=== PATIENT | male | born 1960 | race Caucasian/White ===

== ENCOUNTER → 2017-09-17 | Outpatient (CLI) | payer OTHER ==
--- NOTE | 2017-09-17 12:30 | P.STRESS ---
- Stress Test Note Stress Test Results/Findings: Exam Performed: stress test Exam Date: 09/17/17 Reason for Exam: Chest Pain Height: 6 ft 1 in Weight: 83.461 kg Protocol: Deejay Stage: 3 Duration of Exercise: 9:00 Resting Heart Rate: 75 Resting Blood Pressure: 152/95 Maximum Achieved Heart Rate: 152 Maximum Achieved Blood Pressure: 192/92 85% PMHR: 137 100% PMHR: 161 METS: 10.5 Technologist Comment: Stress Test Results/Findings: This is a 57-year-old gentleman with history of hypertension and hypercholesterolemia being evaluated with symptoms of chest pain. Baseline EKG showed sinus rhythm with normal IN interval and QRS duration is that it PVCs. Blood pressure at rest is 152/95 with pulse rate of 75. Patient walked on the Deejay protocol for about 9 minutes achieving a maximum heart rate of 152 with a blood pressure of 184/85. EKGs taken during and after exercise did not reveal any significant changes from the baseline. The patient did not express any chest pain. Final impression: #1. Negative stress test #2. Patient did not spell is any chest pain #3. Good exercise capacity #4. No arrhythmias noted.
--- NOTE | 2017-09-18 11:38 | EST ---
- Stress Test Note Stress Test Results/Findings: Exam Performed: stress test Exam Date: 09/17/17 Reason for Exam: Chest Pain Height: 6 ft 1 in Weight: 83.461 kg Protocol: Deejay Stage: 3 Duration of Exercise: 9:00 Resting Heart Rate: 75 Resting Blood Pressure: 152/95 Maximum Achieved Heart Rate: 152 Maximum Achieved Blood Pressure: 192/92 85% PMHR: 137 100% PMHR: 161 METS: 10.5 Technologist Comment: Stress Test Results/Findings: This is a 57-year-old gentleman with history of hypertension and hypercholesterolemia being evaluated with symptoms of chest pain. Baseline EKG showed sinus rhythm with normal HI interval and QRS duration is that it PVCs. Blood pressure at rest is 152/95 with pulse rate of 75. Patient walked on the Deejay protocol for about 9 minutes achieving a maximum heart rate of 152 with a blood pressure of 184/85. EKGs taken during and after exercise did not reveal any significant changes from the baseline. The patient did not express any chest pain. Final impression: #1. Negative stress test #2. Patient did not spell is any chest pain #3. Good exercise capacity #4. No arrhythmias noted. MTDD
== END | disposition home or self-care (01) ==
LOC: RADNMMAIN 10:23
PROVIDERS: ATTEND Family Medicine
DX: R07.9 Chest pain, unspecified (principal); I10 Essential (primary) hypertension
CPT/HCPCS: 93017

== ENCOUNTER 2018-06-18 09:52 | Day surgery (SDC) | payer OTHER ==
[2018-06-14 15:24] VITALS: BMI 25.4
[~2018-06-18 09:52] MED LIST: LACTATED RINGERS 1,000 ML IV SCH; LIDOCAINE 1% 20 ML VIAL (10MG/ML) FOR IV START INTRADERMA PRN; MIDAZOLAM (PF) 2 MG/2 ML VIAL IV PRN
[2018-06-18 10:42] VITALS: RESP 16; TEMP 97.8
[2018-06-18] MEDS ORDERED: LIDOCAINE 1% 20 ML VIAL (10MG/ML) FOR IV START INTRADERMA ONE (10:52)
[2018-06-18] MEDS ORDERED: PROPOFOL 10 MG/ML 20 ML VIAL IV ONE (11:00)
--- NOTE | 2018-06-18 11:33 | P.PCN ---
Date of Procedure: 06/18/18 Procedure(s) Performed: Procedure: Total colonoscopy and polypectomy. Preoperative diagnosis: Screening for neoplasia. Postoperative diagnosis: Diverticulosis with no evidence of acute diverticulitis or strictures. Small sigmoid polyp snared but no large polyps or cancer. Preparation: HalfLytely prep. Sedation: Was provided by anesthesia. Brief clinical history: The patient is a 57-year-old male who is scheduled for this evaluation for screening for neoplasia age being his risk factor. There is no family history of colon cancer. The patient has no abdominal complaints, bleeding or anemia. He had a prior exam around 12 years ago around the time when he had hemorrhoid issues. Procedure: With the patient on his left lateral decubitus position and after informed consent and adequate sedation, the perianal area was inspected and it did not show any fissures or fistulas. There were no masses felt on digital rectal examination. The Olympus CFH 190L videocolonoscope was then inserted in the rectum in the usual fashion and advanced to the cecum. The mucosa appeared healthy. There were several diverticular orifices seen scattered in the sigmoid and occasional small orifice was seen in the right colon and around the hepatic flexure with no evidence of acute diverticulitis or strictures. There was a small polyp in the distal sigmoid around 40 cm from the anal verge which was snared and retrieved by suction but there were no large polyps or tumors. I retroflexed the endoscope in the rectum before the endoscope was withdrawn. The patient tolerated the procedure well. Plan: The patient was reassured. Discussed dietary measures. He will follow up with you as planned and I recommended repeat exam in 5 years.
[2018-06-18 11:52] VITALS: BP 136/79; PULSE 57
== END 2018-06-18 12:22 | disposition home or self-care (01) ==
LOC: ORWHC2ENDO 09:52
DX: Z12.11 Encounter for screening for malignant neoplasm of colon (principal); D12.5 Benign neoplasm of sigmoid colon; K57.30 Diverticulosis of large intestine without perforation or abscess without bleeding; I10 Essential (primary) hypertension; E78.5 Hyperlipidemia, unspecified; Z79.899 Other long term (current) drug therapy; Z88.6 Allergy status to analgesic agent; Z90.79 Acquired absence of other genital organ(s); Z85.46 Personal history of malignant neoplasm of prostate
CPT/HCPCS: 88305; 45385; J2704

== ENCOUNTER 2018-09-07 13:59 | Emergency (ER) | payer OTHER ==
[2018-09-07] MEDS ORDERED: SODIUM CHLORIDE 0.9% 1,000 ML IV STA (14:25)
[2018-09-07 14:37] LABS: Basophils # (A) 0.1 k/uL (0-0.2); Basophils % (A) 1 %; Eosinophils # (A) 0.2 k/uL (0-0.7); Eosinophils % (A) 2 %; HCT 43.4 % (39.0-53.0); HGB 14.6 gm/dL (13.0-17.5); Lymphocytes % (A) 10 %; MCH 31.1 pg (25.0-35.0); MCHC 33.7 g/dL (31.0-37.0); MCV 92.1 fL (80.0-100.0); Mean Platelet Volume 6.9; Monocytes # (A) 0.6 k/uL (0-1.0); Monocytes % (A) 6 %; Neutrophils # (A) 8.2 k/uL (1.3-7.7); Neutrophils % (A) 80 %; Platelet Count 222 k/uL (150-450); RBC 4.71 m/uL (4.30-5.90); RDW 12.9 % (11.5-15.5); WBC 10.2 k/uL (3.8-10.6)
--- NOTE | 2018-09-07 14:44 | ED ---
General Adult HPI - General Chief complaint: Fall Stated complaint: fall Time Seen by Provider: 09/07/18 14:12 Source: patient, family, EMS, RN notes reviewed Mode of arrival: EMS Limitations: no limitations - History of Present Illness Initial comments: Patient is a pleasant 57-year-old male presenting to the emergency department following a fall. Incident occurred just prior to arrival. Patient was walking outside on the face near his [place]. Patient did fall and hit his head. Patient denies any loss of consciousness. Patient states he feels fine at this time and has no significant complaints. Patient denies any confusion or weakness or visual changes. Patient denies any headache. No neck or back pain. No chest pain or dyspnea. No abdominal pain. does state that patient has been somewhat slow to respond. She states this is not normal for him. She states otherwise he seems to be answering questions mostly appropriately. - Related Data Home Medications Medication Instructions Recorded Confirmed Atorvastatin [Lipitor] 80 mg PO DAILY 06/14/18 09/07/18 Chlorthalidone [Hygroton] 25 mg PO QAM 06/14/18 09/07/18 Lisinopril 40 mg PO QAM 06/14/18 09/07/18 Metoprolol Tartrate [Lopressor] 50 mg PO QAM 06/14/18 09/07/18 Allergies Allergy/AdvReac Type Severity Reaction Status Date / Time aspirin AdvReac Cough Verified 09/07/18 14:26 Review of Systems ROS Statement: Those systems with pertinent positive or pertinent negative responses have been documented in the HPI. ROS Other: All systems not noted in ROS Statement are negative. Constitutional: Denies: fever Eyes: Denies: eye pain ENT: Denies: ear pain Respiratory: Denies: cough Cardiovascular: Denies: chest pain Endocrine: Denies: fatigue Gastrointestinal: Denies: abdominal pain Genitourinary: Denies: dysuria Musculoskeletal: Denies: back pain Skin: Denies: rash Neurological: Reports: as per HPI. Denies: headache Past Medical History Past Medical History: Cancer, Hyperlipidemia, Hypertension Additional Past Medical History / Comment(s): HX PROSTATE CA History of Any Multi-Drug Resistant Organisms: None Reported Past Surgical History: Prostate Surgery Additional Past Surgical History / Comment(s): hemorroid surgery Past Anesthesia/Blood Transfusion Reactions: No Reported Reaction Past Psychological History: No Psychological Hx Reported Smoking Status: Light tobacco smoker Past Alcohol Use History: Daily Past Drug Use History: None Reported - Past Family History Mother Family Medical History: Cancer Additional Family Medical History / Comment(s): BREAST, LEUKEMIA Brother(s) Family Medical History: Cancer Additional Family Medical History / Comment(s): PANCREATIC General Exam Limitations: no limitations General appearance: alert, in no apparent distress Head exam: Present: atraumatic Eye exam: Present: normal appearance, PERRL, EOMI, nystagmus (Even at rest) ENT exam: Present: normal oropharynx Neck exam: Present: normal inspection. Absent: tenderness Respiratory exam: Present: normal lung sounds bilaterally Cardiovascular Exam: Present: regular rate, normal rhythm GI/Abdominal exam: Present: soft. Absent: tenderness Extremities exam: Present: normal inspection. Absent: pedal edema, calf tenderness Neurological exam: Present: alert, CN II-XII intact, motor sensory deficit, other (Patient is somewhat slow to respond, especially with answering the year. Patient does need to try several times before appropriately stating the right year) Expanded Neurological exam: Present: protecting the airway Patient oriented to: Present: person, place, time (Patient is able to state the correct year however is very delayed with this and originally states 1920.) Speech: Present: fluid speech Cranial nerves: EOM's Intact: Normal (With nystagmus) Cerebellar function: Finger to Nose: Normal Sensory exam: Upper Extremity Light Touch: Normal, Lower Extremity Light Touch: Normal Motor strength exam: RUE: 5, LUE: 5, RLE: 5, LLE: 5 Eye Response: (4) open spontaneously Motor Response: (6) obeys commands Verbal Response: (5) oriented Psychiatric exam: Present: normal affect, normal mood Skin exam: Present: normal color Course Vital Signs 09/07/18 09/07/18 09/07/18 14:06 14:31 14:56 Temperature 97.5 F L Pulse Rate 62 61 62 Respiratory 16 18 16 Rate Blood Pressure 132/85 136/91 O2 Sat by Pulse 94 L 93 L 96 Oximetry EKG Findings - EKG Comments: EKG Findings:: Sinus rhythm at 62. For screening AV block with a HI of 224. QRS 88. QT 446. QTc 452. Left axis. Inferior Q waves. No acute ST change. Medical Decision Making - Medical Decision Making Patient reevaluated and unchanged. Patient still with nystagmus. Patient and family are updated on results and plan. Case was discussed with Dr. Guillen at [facility], who will accept for Dr. Templeton - Lab Data Result diagrams: 09/07/18 14:25 09/07/18 14:25 Lab Results 09/07/18 09/07/18 09/07/18 Range/Units 14:25 14:25 14:25 WBC 10.2 (3.8-10.6) k/uL RBC 4.71 (4.30-5.90) m/uL Hgb 14.6 (13.0-17.5) gm/dL Hct 43.4 (39.0-53.0) % MCV 92.1 (80.0-100.0) fL MCH 31.1 (25.0-35.0) pg MCHC 33.7 (31.0-37.0) g/dL RDW 12.9 (11.5-15.5) % Plt Count 222 (150-450) k/uL Neutrophils % 80 % Lymphocytes % 10 % Monocytes % 6 % Eosinophils % 2 % Basophils % 1 % Neutrophils # 8.2 H (1.3-7.7) k/uL Lymphocytes # 1.0 (1.0-4.8) k/uL Monocytes # 0.6 (0-1.0) k/uL Eosinophils # 0.2 (0-0.7) k/uL Basophils # 0.1 (0-0.2) k/uL PT 10.3 (9.0-12.0) sec INR 1.0 (<1.2) APTT 21.4 L (22.0-30.0) sec Sodium 140 (137-145) mmol/L Potassium 4.0 (3.5-5.1) mmol/L Chloride 104 (98-107) mmol/L Carbon Dioxide 28 (22-30) mmol/L Anion Gap 8 mmol/L BUN 24 H (9-20) mg/dL Creatinine 0.86 (0.66-1.25) mg/dL Est GFR (CKD-EPI)AfAm >90 (>60 ml/min/1.73 sqM) Est GFR (CKD-EPI)NonAf >90 (>60 ml/min/1.73 sqM) Glucose 118 H (74-99) mg/dL Calcium 9.1 (8.4-10.2) mg/dL Total Bilirubin 0.6 (0.2-1.3) mg/dL AST 27 (17-59) U/L ALT 40 (21-72) U/L Alkaline Phosphatase 77 (38-126) U/L Troponin I (0.000-0.034) ng/mL Total Protein 6.5 (6.3-8.2) g/dL Albumin 4.0 (3.5-5.0) g/dL 09/07/18 Range/Units 14:25 WBC (3.8-10.6) k/uL RBC (4.30-5.90) m/uL Hgb (13.0-17.5) gm/dL Hct (39.0-53.0) % MCV (80.0-100.0) fL MCH (25.0-35.0) pg MCHC (31.0-37.0) g/dL RDW (11.5-15.5) % Plt Count (150-450) k/uL Neutrophils % % Lymphocytes % % Monocytes % % Eosinophils % % Basophils % % Neutrophils # (1.3-7.7) k/uL Lymphocytes # (1.0-4.8) k/uL Monocytes # (0-1.0) k/uL Eosinophils # (0-0.7) k/uL Basophils # (0-0.2) k/uL PT (9.0-12.0) sec INR (<1.2) APTT (22.0-30.0) sec Sodium (137-145) mmol/L Potassium (3.5-5.1) mmol/L Chloride (98-107) mmol/L Carbon Dioxide (22-30) mmol/L Anion Gap mmol/L BUN (9-20) mg/dL Creatinine (0.66-1.25) mg/dL Est GFR (CKD-EPI)AfAm (>60 ml/min/1.73 sqM) Est GFR (CKD-EPI)NonAf (>60 ml/min/1.73 sqM) Glucose (74-99) mg/dL Calcium (8.4-10.2) mg/dL Total Bilirubin (0.2-1.3) mg/dL AST (17-59) U/L ALT (21-72) U/L Alkaline Phosphatase (38-126) U/L Troponin I <0.012 (0.000-0.034) ng/mL Total Protein (6.3-8.2) g/dL Albumin (3.5-5.0) g/dL - Radiology Data Radiology results: report reviewed (Chest x-ray shows no acute process), image reviewed (Computed tomography scan of the brain and cervical spine does not reveal acute abnormality) Disposition Clinical Impression: Fall, Closed head injury Disposition: OTHER INSTITUTION NOT DEFINED Is patient prescribed a controlled substance at d/c from ED?: No Referrals: Dwight Mathew DO [Primary Care Provider] - 1-2 days Time of Disposition: 15:42 - Out of Hospital Transfer - Req. Specs Out of Hospital Transfer - Requested Specifics: Other Emergency Center
[2018-09-07 14:53] LABS: ALT 40 U/L (21-72); AST 27 U/L (17-59); Alkaline Phosphatase 77 U/L (38-126); Anion Gap 8 mmol/L; Blood Urea Nitrogen 24 mg/dL (9-20); Calcium 9.1 mg/dL (8.4-10.2); Carbon Dioxide 28 mmol/L (22-30); Chloride 104 mmol/L (98-107); Glucose 118 mg/dL (74-99); Sodium 140 mmol/L (137-145); Total Bilirubin 0.6 mg/dL (0.2-1.3); Total Protein 6.5 g/dL (6.3-8.2)
[2018-09-07 14:59] VITALS: RESP 16
--- NOTE | 2018-09-07 15:03 | XR ---
EXAMINATION TYPE: XR chest 2V DATE OF EXAM: 09/07/2018 COMPARISON: NONE HISTORY: Altered mental status TECHNIQUE: Frontal and lateral views of the chest are obtained. FINDINGS: There is no heart failure nor confluent pneumonic infiltrate. Heart is slightly enlarged. There are chest leads. Costophrenic angles are clear. IMPRESSION: Mild cardiomegaly. No active cardiopulmonary disease.
--- NOTE | 2018-09-07 15:06 | CT ---
EXAMINATION TYPE: CT brain sabasine wo con DATE OF EXAM: 09/07/2018 COMPARISON: 01/05/2014 HISTORY: ams, slipped on ice, fell hitting head, lacerations above right eye Neck pain CT DLP: 1733.5 mGycm Automated exposure control for dose reduction was used. TECHNIQUE: CT scan of the head and cervical spine are performed without contrast. FINDINGS: Ventricles have normal size. There is no mass effect nor midline shift. There is no sign of intracranial hemorrhage. The calvarium is intact. Cervical vertebra have fairly normal spacing and alignment. There is mild hypertrophic facet arthropa thy. The skull base is intact. There is no evidence of a fracture. There is mild spurring anteriorly in the lower cervical spine. IMPRESSION: Negative CT scan of the brain. Minor degenerative disc changes in the cervical spine. No fracture. no significant change compared to old exam.
[2018-09-07 15:08] LABS: Partial Thromboplastin Time 21.4 sec (22.0-30.0); Prothrombin Time 10.3 sec (9.0-12.0)
[2018-09-07 15:58] VITALS: BP 143/89; PULSE 58; TEMP 97.8
== END 2018-09-07 16:05 | disposition short-term general hospital (02) ==
LOC: EC 13:59
DX: S09.90XA Unspecified injury of head, initial encounter (principal); H55.00 Unspecified nystagmus; E78.5 Hyperlipidemia, unspecified; I10 Essential (primary) hypertension; F17.200 Nicotine dependence, unspecified, uncomplicated; Z88.6 Allergy status to analgesic agent; Z79.899 Other long term (current) drug therapy; Z85.46 Personal history of malignant neoplasm of prostate; Z98.890 Other specified postprocedural states; W00.0XXA Fall on same level due to ice and snow, initial encounter; Y93.01 Activity, walking, marching and hiking; Y92.89 Other specified places as the place of occurrence of the external cause
CPT/HCPCS: 36415; 70450; 71046; 72125; 80053; 84484; 85025; 85610; 85730; 93005; 96360; 99285

== ENCOUNTER → 2021-12-21 | Outpatient (CLI) | payer BC ==
--- NOTE | 2021-12-21 13:06 | XR ---
Cervical spine HISTORY: Arm pain, back pain in neck pain 5 views of the cervical spine There is multilevel spondylosis. Prevertebral soft tissues are normal. Loss of disc height is present at C6-7. C7-T1 not well seen. Cervical vertebral bodies show preserved height, alignment, bone title insurance examiner alization. There is no significant foraminal encroachment on oblique views. There are some facet arth ropathy changes. Probable vascular calcifications noted along the distribution of the carotid arterie s. Patient appears rotated, there may be spinal curvature. IMPRESSION: Degenerative disc disease and facet arthropathy, additional findings above
== END | disposition home or self-care (01) ==
LOC: RADXRYALE 08:41
PROVIDERS: ATTEND Physician Assistant
DX: M47.812 Spondylosis without myelopathy or radiculopathy, cervical region (principal); M50.30 Other cervical disc degeneration, unspecified cervical region
CPT/HCPCS: 72050

== ENCOUNTER → 2022-01-12 | Outpatient (CLI) | payer BC ==
--- NOTE | 2022-01-12 12:20 | US ---
EXAMINATION TYPE: US carotid duplex BILAT DATE OF EXAM: 01/12/2022 COMPARISON: NONE CLINICAL HISTORY: M54.2 Cervicalgia. stenosis EXAM MEASUREMENTS: RIGHT: Peak Systolic Velocity (PSV) cm/sec ----- Right CCA: 82.3 ----- Right ICA: 85.2 ----- Right ECA: 96.8 ICA/CCA ratio: 1.0 RIGHT: End Diastole cm/sec ----- Right CCA: 18.3 ----- Right ICA: 28.5 ----- Right ECA: 16.9 LEFT: Peak Systolic Velocity (PSV) cm/sec ----- Left CCA: 108.4 ----- Left ICA: 89.5 ----- Left ECA: 77.9 ICA/CCA ratio: 0.8 LEFT: End Diastole cm/sec ----- Left CCA: 22.7 ----- Left ICA: 21.2 ----- Left ECA: 14.0 VERTEBRALS (direction of flow): Right Vertebral: Antegrade Left Vertebral: Antegrade Rhythm: Normal IMPRESSION: No significant stenosis seen Criteria for Assigning % of Stenosis / Diameter reduction (Estimation based on the indirect measurements of the internal carotid artery velocities (ICA PSV). 1. Normal (no stenosis)=ICA PSV < 125 cm/s: ratio < 2.0: ICA EDV<40 cm/s. 2. Less than 50% stenosis=ICA PSV < 125 cm/s: ratio < 2.0: ICA EDV<40 cm/s. 3. 50 to 69% stenosis=ICA PSV of 125 to 230 cm/s: ration 2.0 ? 4.0: ICA EDV 40-100 cm/s. 4. Greater than 70% stenosis to near occlusion= ICA PSV > 230 cm/s: ratio > 4.0: ICA EDV > 100 cm/s. 5. Near occlusion= ICA PSV velocities may be low or undetectable: variable ratio and ICA EDV. 6. Total occlusion=unable to detect flow.
== END ==
LOC: RADUSWWP 10:35
PROVIDERS: ATTEND Family Medicine
DX: M54.2 Cervicalgia (principal); I10 Essential (primary) hypertension
CPT/HCPCS: 93880

== ENCOUNTER 2023-10-23 07:09 | Day surgery (SDC) | payer OTHER ==
[2023-10-19 15:43] VITALS: BMI 26.4
[~2023-10-23 07:09] MED LIST changes: +LIDOCAINE 1% (10MG/ML) FOR IV START INTRADERMA PRN; -LIDOCAINE 1% 20 ML VIAL (10MG/ML) FOR IV START INTRADERMA PRN; -MIDAZOLAM (PF) 2 MG/2 ML VIAL IV PRN
[2023-10-23] MEDS: LACTATED RINGERS 1,000 ML IV ONE (07:37)
[2023-10-23 07:59] VITALS: TEMP 97.7
[2023-10-23] MEDS ORDERED: PROPOFOL 10 MG/ML 20 ML VIAL IV ONE (08:11)
[2023-10-23] MEDS ORDERED: LIDOCAINE 1% INJ 10MG/ML (20 ML MDV) ONE (08:11)
--- NOTE | 2023-10-23 08:32 | P.PCN ---
Date of Procedure: 10/23/23 Procedure(s) Performed: BRIEF HISTORY: Patient is a 58-year-old pleasant White male scheduled for an elective colonoscopy as a part of Evaluation of prior history of colon polyps. PROCEDURE PERFORMED: Colonoscopy With biopsy and snare polypectomy. PREOPERATIVE DIAGNOSIS: History of colon polyps. IV sedation per Anesthesia. PROCEDURE: After informed consent was obtained, the patient, was brought into the endoscopy unit. IV sedation was administered by Anesthesia under continuous monitoring. Digital rectal examination was normal. Initially the Olympus CF-160 flexible video colonoscope was then inserted in the rectum, gradually advanced into the cecum without any difficulty. Careful examination was performed as the scope was gradually being withdrawn. Ileocecal valve and the appendiceal orifice were visualized and appeared normal. Prep was excellent. Mucosa of the cecum, ascending colon, transverse colon, Appeared normal. In the descending colon there was a 3 mm and a 6 minute a polyp that was removed by cold biopsy as or snare polypectomy respectively. Rest of thedescending colon, sigmoid colon, and rectum appeared normal. Scattered sigmoid diverticulosis.Retroflexion was performed in the rectum and no lesions were seen. The patient tolerated the procedure well. IMPRESSION: 3 mm and 6 mm reasoning colon polyp status post cold biopsy and cold snare polypectomy respectively Scattered sigmoid diverticulosis RECOMMENDATIONS: Findings of this examination were discussed with the patient As well as a family. He was advised to follow with the biopsy result. If the biopsy result adenoma he can have a repeat colonoscopy in 5 years.
[2023-10-23 09:28] VITALS: BP 138/89; PULSE 57; RESP 18
== END 2023-10-23 09:14 | disposition home or self-care (01) ==
LOC: ORWHC2ENDO 07:09
PROVIDERS: ATTEND Internal Medicine Gastroenterology
DX: Z12.11 Encounter for screening for malignant neoplasm of colon (principal); D12.4 Benign neoplasm of descending colon; K57.30 Diverticulosis of large intestine without perforation or abscess without bleeding; Z86.010 Personal history of colon polyps; Z88.6 Allergy status to analgesic agent; I10 Essential (primary) hypertension; E78.5 Hyperlipidemia, unspecified; F90.9 Attention-deficit hyperactivity disorder, unspecified type; Z79.899 Other long term (current) drug therapy; Z98.890 Other specified postprocedural states; Z85.46 Personal history of malignant neoplasm of prostate
CPT/HCPCS: 88305; 45380; 45385; J2001; J2704